=== PATIENT | female | born 1995 | race Caucasian/White ===

== ENCOUNTER → 2017-07-05 | Outpatient (CLI) | payer OTHER ==
[~2017-07-05] MED LIST: METHOTREXATE SODIUM (PF) 25 MG/ML 2 ML VIAL IM NR
[2017-07-05 11:33] VITALS: BP 117/63; PULSE 81; RESP 16; TEMP 99.2
== END | disposition home or self-care (01) ==
LOC: PROCWHC3 09:40
PROVIDERS: ATTEND Obstetrics & Gynecology Obstetrics
DX: O00.90 Unspecified ectopic pregnancy without intrauterine pregnancy (principal); Z3A.00 Weeks of gestation of pregnancy not specified
CPT/HCPCS: 86900; 86901; 82565; 84450; 84520; 85027; 86850; 84702; 96402; 36415; J9260

== ENCOUNTER → 2017-07-07 | Outpatient (CLI) | payer OTHER | END | disposition home or self-care (01) | LOC: LABWHC1 15:34 | PROVIDERS: ATTEND Obstetrics & Gynecology Obstetrics | DX: O00.109 Unspecified tubal pregnancy without intrauterine pregnancy (principal) | CPT/HCPCS: 36415; 84702 ==

== ENCOUNTER → 2018-05-15 | Outpatient (CLI) | payer OTHER ==
[2018-05-15 16:35] LABS: HCT 38.5 % (34.0-46.0); HGB 12.8 gm/dL (11.4-16.0); MCH 30.7 pg (25.0-35.0); MCHC 33.3 g/dL (31.0-37.0); MCV 92.2 fL (80.0-100.0); Mean Platelet Volume 5.9; Platelet Count 215 k/uL (150-450); RBC 4.17 m/uL (3.80-5.40); RDW 12.3 % (11.5-15.5); WBC 7.4 k/uL (3.8-10.6)
[2018-05-16 02:58] LABS: Thyroid Peroxidase Antibodies <28.0 U/mL (0.0-60.0)
[2018-05-16 03:41] LABS: HIV 1 AB Non-Reactive (Non-Reactive); HIV AB P24 Non-Reactive (Non-Reactive); HIV P24 AG Non-Reactive (Non-Reactive)
== END | disposition home or self-care (01) ==
LOC: LABWHC1 16:02
PROVIDERS: ATTEND Obstetrics & Gynecology Obstetrics
DX: Z34.81 Encounter for supervision of other normal pregnancy, first trimester (principal); Z3A.00 Weeks of gestation of pregnancy not specified
CPT/HCPCS: 36415; 84439; 84443; 84481; 85027; 86376; 86762; 86780; 86850; 86900; 86901; 87340; 87390

== ENCOUNTER → 2018-06-01 | Outpatient (CLI) | payer OTHER ==
--- NOTE | 2018-06-02 07:29 | US ---
EXAMINATION TYPE: US thyroid st tissue head/neck DATE OF EXAM: 06/01/2018 COMPARISON: NONE CLINICAL HISTORY: Enlarged Thyroid E04.9. Enlarged thyroid. GLAND SIZE: Right Lobe: 6.0 x 2.7 x 2.3 cm Overall Parenchyma: Slightly heterogeneous. Left Lobe: 6.2 x 2.1 x 1.9 cm Overall Parenchyma: Slightly heterogenous Isthmus Thickness: 0.46 cm NODULES RIGHT: # of nodules measured on right: 1 Subcentimeter. 1. 0.3 X 0.4 x 0.3 cm Hypoechoic mixed nodule at the mid pole with well-defined margins. This nodu le is wider than tall and shows no intranodular vascularity. Prior size: No prior LEFT: # of nodules measured on left: 0 ISTHMUS: # of nodules measured in the isthmus: 0 Bilateral neck scanned, no evidence of lymphadenopathy. There is heterogeneous slightly enlarged thyroid gland with single tiny 3 mm nodule right thyroid lob e marked by technologist. IMPRESSION: Heterogeneous slightly enlarged thyroid without worrisome greater than 1 cm solid or cystic nodule.
== END | disposition home or self-care (01) ==
LOC: RADUSWWP 15:42
PROVIDERS: ATTEND Clinical Nurse Specialist Women's Health
DX: E04.1 Nontoxic single thyroid nodule (principal)
CPT/HCPCS: 76536

== ENCOUNTER → 2021-09-04 | Outpatient (CLI) | payer BC, OTHER | END | disposition home or self-care (01) | LOC: LABWHC1 08:18 | PROVIDERS: ATTEND Obstetrics & Gynecology Obstetrics | DX: O20.0 Threatened abortion (principal); Z3A.00 Weeks of gestation of pregnancy not specified | CPT/HCPCS: 36415; 84702 ==

== ENCOUNTER 2021-12-01 12:32 | Emergency (ER) | payer BC, OTHER ==
[2021-12-01 12:46] VITALS: BP 116/74; PULSE 97; RESP 20; TEMP 98.4
[2021-12-01 15:39] LABS: Basophils % (A) 0 %; Eosinophils # (A) 0.4 k/uL (0-0.7); Eosinophils % (A) 5 %; HCT 42.7 % (34.0-46.0); Lymphocytes # (A) 1.9 k/uL (1.0-4.8); Lymphocytes % (A) 26 %; MCH 30.5 pg (25.0-35.0); MCHC 32.8 g/dL (31.0-37.0); MCV 92.9 fL (80.0-100.0); Mean Platelet Volume 6.9; Monocytes # (A) 0.5 k/uL (0-1.0); Monocytes % (A) 6 %; Neutrophils # (A) 4.4 k/uL (1.3-7.7); Neutrophils % (A) 60 %; Platelet Count 297 k/uL (150-450); RDW 12.1 % (11.5-15.5); WBC 7.4 k/uL (3.8-10.6)
--- NOTE | 2021-12-01 16:02 | ED ---
General Adult HPI - General Chief complaint: Recheck/Abnormal Lab/Rx Stated complaint: 4wks preg, poss ectopic Time Seen by Provider: 12/01/21 14:48 Source: patient Mode of arrival: ambulatory Limitations: no limitations - History of Present Illness Initial comments: Dictation was produced using [employer] dictation software. please excuse any grammatical, word or spelling errors. Chief Complaint: 26-year-old feel presents emergency department for concerns of ectopic History of Present Illness: 26-year-old female she is allegedly 4 weeks . She went to the clinic to get an . Patient had an ultrasound done there and was concerned of a ectopic . She is told that there was no runs of intrauterine . He did not do blood work. He did not do a beta Quant at the office. Patient was then referred to the emergency department for further care. Patient complains of some mild pressure to the suprapubic area however she denies any pain. Denies any vaginal discharge or bleeding. She has a history of ectopic in the past. The ROS documented in this emergency department record has been reviewed and confirmed by me. Those systems with pertinent positive or negative responses have been documented in the HPI. All other systems are other negative and/or noncontributory. PHYSICAL EXAM: General Impression: Alert and oriented x3, not in acute distress HEENT: Normocephalic atraumatic, extra-ocular movements intact, pupils equal and reactive to light bilaterally, mucous membranes moist. Cardiovascular: Heart regular rate and rhythm Chest: Able to complete full sentences, no retractions, no tachypnea Abdomen: abdomen soft, non-tender, non-distended, no organomegaly Musculoskeletal: Pulses present and equal in all extremities, no peripheral edema Motor: no focal deficits noted Neurological: CN II-XII grossly intact, no focal motor or sensory deficits noted Skin: Intact with no visualized rashes Psych: Normal affect and mood ED course: 26-year-old female presents to the emergency department for concerns of ectopic . Vital signs upon arrival are within acceptable limits. Ultrasound shows small cystic structure within the endometrium without de finitive yolk sac or pole. This may represent early gestation. Beta Quant is 1374. Coag panel is unremarkable. Metabolic panel is negative. Chin reevaluated at 4:50 PM finally stable medical condition. Patient offered pelvic exam her she refused. Patient given 48 hour beta Quant levels. she is told to follow-up with her ADULT DAYCARE COORDINATOR. Patient given return precautions. Patient we will discharge. - Related Data Home Medications Medication Instructions Recorded Confirmed Pnv No.95/Ferrous Fum/Folic AC 1 each PO DAILY 07/05/17 11/02/18 [ Multivitamin Tablet] Allergies Allergy/AdvReac Type Severity Reaction Status Date / Time No Known Allergies Allergy Verified 12/01/21 12:46 Review of Systems ROS Statement: Those systems with pertinent positive or pertinent negative responses have been documented in the HPI. ROS Other: All systems not noted in ROS Statement are negative. Past Medical History Past Medical History: No Reported History History of Any Multi-Drug Resistant Organisms: None Reported Additional Past Surgical History / Comment(s): [place] tooth extraction Past Anesthesia/Blood Transfusion Reactions: No Reported Reaction Past Psychological History: No Psychological Hx Reported Smoking Status: Never smoker Past Alcohol Use History: Occasional Past Drug Use History: None Reported - Past Family History Father Family Medical History: No Reported History General Exam Limitations: no limitations Course Vital Signs 12/01/21 12:43 Temperature 98.4 F Pulse Rate 97 Respiratory 20 Rate Blood Pressure 116/74 O2 Sat by Pulse 100 Oximetry Medical Decision Making - Lab Data Result diagrams: 12/01/21 15:20 12/01/21 15:54 Lab Results 12/01/21 12/01/21 12/01/21 Range/Units 15:20 15:54 15:54 WBC 7.4 (3.8-10.6) k/uL RBC 4.60 (3.80-5.40) m/uL Hgb 14.0 (11.4-16.0) gm/dL Hct 42.7 (34.0-46.0) % MCV 92.9 (80.0-100.0) fL MCH 30.5 (25.0-35.0) pg MCHC 32.8 (31.0-37.0) g/dL RDW 12.1 (11.5-15.5) % Plt Count 297 (150-450) k/uL MPV 6.9 Neutrophils % 60 % Lymphocytes % 26 % Monocytes % 6 % Eosinophils % 5 % Basophils % 0 % Neutrophils # 4.4 (1.3-7.7) k/uL Lymphocytes # 1.9 (1.0-4.8) k/uL Monocytes # 0.5 (0-1.0) k/uL Eosinophils # 0.4 (0-0.7) k/uL Basophils # 0.0 (0-0.2) k/uL PT 10.7 (9.0-12.0) sec INR 1.0 (<1.2) APTT 24.6 (22.0-30.0) sec Sodium 138 (137-145) mmol/L Potassium 4.1 (3.5-5.1) mmol/L Chloride 102 (98-107) mmol/L Carbon Dioxide 24 (22-30) mmol/L Anion Gap 12 mmol/L BUN 8 (7-17) mg/dL Creatinine 0.76 (0.52-1.04) mg/dL Est GFR (CKD-EPI)AfAm >90 (>60 ml/min/1.73 sqM) Est GFR (CKD-EPI)NonAf >90 (>60 ml/min/1.73 sqM) Glucose 86 (74-99) mg/dL Calcium 8.9 (8.4-10.2) mg/dL HCG, Quant 1374.2 mIU/mL Disposition Clinical Impression: Early stage of Disposition: HOME SELF-CARE Condition: Good Instructions (If sedation given, give patient instructions): Abdominal Pain in (ED) Additional Instructions: follow up with OB Is patient prescribed a controlled substance at d/c from ED?: No Time of Disposition: 16:53
[2021-12-01 16:16] LABS: Partial Thromboplastin Time 24.6 sec (22.0-30.0); Prothrombin Time 10.7 sec (9.0-12.0)
[2021-12-01 16:18] LABS: African American GFR (CKD) >90 (>60 ml/min/1.73 sqM); Anion Gap 12 mmol/L; Blood Urea Nitrogen 8 mg/dL (7-17); Calcium 8.9 mg/dL (8.4-10.2); Carbon Dioxide 24 mmol/L (22-30); Chloride 102 mmol/L (98-107); Glucose 86 mg/dL (74-99); Non-African American GFR(CKD) >90 (>60 ml/min/1.73 sqM); Potassium 4.1 mmol/L (3.5-5.1); Sodium 138 mmol/L (137-145)
--- NOTE | 2021-12-01 16:23 | US ---
EXAMINATION TYPE: Transabdominal DATE OF EXAM: 12/01/2021 3:07 PM COMPARISON: NONE CLINICAL HISTORY: pain,. Pelvic pressure, history of ectopic in the past EXAM PERFORMED: Transvaginal (TV) and Transabdominal (TA) EXAM MEASUREMENTS: GESTATIONAL AGE / DATING Physician Established: Not yet established Dates by LMP: (04 weeks/1 days) EDC: 08/09/2022 Dates by Current Scan for: No IUP seen at this time MATERNAL ANATOMY Uterus: Small fluid collection seen in endometrium, too small to characterize as an IUP Right Ovary: 2.9 x 2.0 x 2.7cm In the right ovary a complex cystic structure is visualized measuring 2.3 x 1.8 x 2.1 cm Left Ovary: 2.1 x 1.3 x 1.8cm. Wnl Post CDS / Adnexa: wnl Presence of free fluid: No Presence of corpus luteal cyst: Yes Presence of subchorionic bleed: No GESTATION / SURVEY No IUP seen. Date of LMP: 11/02/2021 IMPRESSION: Small cystic structure within the endometrium without definitive yolk sac or pole. This may rep resent early gestation versus . Ectopic is not entirely excluded. Follow-up ultrasound in 7-1 0 days is recommended with serial beta-hCGs.
[2021-12-01 16:34] LABS: HCG,Quantitative Serum 1374.2 mIU/mL
== END 2021-12-01 17:00 | disposition home or self-care (01) ==
LOC: EC 12:32
DX: Z34.91 Encounter for supervision of normal pregnancy, unspecified, first trimester (principal); Z3A.01 Less than 8 weeks gestation of pregnancy
CPT/HCPCS: 36415; 76801; 76817; 80048; 84702; 85025; 85610; 85730; 99284